=== PATIENT | female | born 1955 | race African-American/Black ===

== ENCOUNTER 2017-04-20 11:34 | Emergency (ER) | payer OTHER ==
[~2017-04-20] VITALS: Ht 157.5 cm; Wt 50.0 kg
[~2017-04-20 11:34] MED LIST: CARV12.5 PO; COZA25TA PO; HYDR25TA35 PO; LANSO15 PO; NIFE30TA8 PO
[2017-04-20] MEDS ORDERED: IOHEXOL 350 MG/ML 10 ML VIAL (for RAD DIAG) IVCONTRAST ONE (11:35)
[2017-04-20 11:38] VITALS: BP 188/92; PULSE 86; RESP 16; TEMP 97.9; O2SAT 97
[2017-04-20] MEDS ORDERED: SODIUM CHLOR 0.9% 1000 ML INJ 1,000 ML IV SCH (11:43)
[2017-04-20] MEDS ORDERED: ONDANSETRON HCL 4 MG/2 ML VIAL IVP ONE (11:45)
[2017-04-20] MEDS ORDERED: MORPHINE SULFATE 2 MG/ML INJ IV PUSH ONE (12:00)
--- NOTE | 2017-04-20 12:10 | PD ---
HPI Chief Complaint: GI Complaint Time Seen by Provider: 11:43 Travel History International Travel<30 days: No Contact w/Intl Traveler<30days: No Traveled to known affect area: No History of Present Illness HPI 61-year-old female that presents to the ED for evaluation of nausea and vomiting as well as epigastric abdominal pain with diarrhea. Patient has a history of lower leg cramps that she's had for a couple of weeks to have been worsening since having the nausea vomiting diarrhea. Per patient she has follow with her doctor who told her that she may have arthritis and order some x -rays that she has not gotten yet here per patient she wants this to be checked as well. Per patient since yesterday at night she developed the nausea vomiting and diarrhea. Per patient no blood from either and but she does have green bile when she throws up. She denies any surgeries to her abdomen. She has an allergy to codeine. She has been taking [id number] remedies with minimal relief. Diarrhea is liquidy. The patient last night she had low difficulty sleeping secondary to nausea and vomiting as well as the cramping. She states that her pain currently is 4 out of 10. Most the patient is in the epigastric area. Denies hitting anything new that could've caused this. No sick contacts. No cough or nose. No fevers chills or sweats. Per patient the pain on the legs is 6 out of 10 and is cramping in nature. Comes and goes. She 's never had this before other than 3 weeks ago. PFSH Past Medical History Anxiety: Yes Depression: Yes Cystic Fibrosis: Yes Diminished Hearing: No Hypertension: Yes Psychiatric: Yes : 2 Para: 2 Dilation and Curettage (D&C): Yes Tubal Ligation: Yes Past Surgical History Other Surgery: Yes (TUBAL LIGATION, FIBROIDS) Social History Alcohol Use: Yes (OCC) Tobacco Use: Yes (PACK A WEEK) Substance Use: Yes (marijuana) Allergies-Medications (Allergen,Severity, Reaction): Coded Allergies: codeine (Verified Allergy, Unknown, ITCH, SWELLING, 04/20/17) Reported Meds & Prescriptions Reported Meds & Active Scripts Active Hydrocodone-Acetamin 5-325 mg (Hydrocodone/Acetaminophen) 5 Mg-325 Mg Tablet 1 Tab PO Q6HR PRN Ranitidine (Ranitidine HCl) 150 Mg Tab 150 Mg PO BID Zofran Odt (Ondansetron Odt) 4 Mg Tab 4 Mg SL Q6HR PRN Nifedipine ER 24 HR (Nifedipine) 30 Mg Tab 30 Mg PO DAILY Coreg (Carvedilol) 12.5 Mg Tab 25 Mg PO Q12HR Reported Hydralazine HCl 25 Mg Tablet 25 Mg PO TID Diclofenac Potassium 50 Mg Tab 50 Mg PO TID Review of Systems Except as stated in HPI: all other systems reviewed are Neg Physical Exam Narrative GENERAL: SKIN: Warm and dry. Slightly anorexic. HEAD: Atraumatic. Normocephalic. EYES: Pupils equal and round. No scleral icterus. No injection or drainage. ENT: No nasal bleeding or discharge. Mucous membranes pink and moist. Tongue is midline. No uvula deviation. NECK: Trachea midline. No JVD. CARDIOVASCULAR: Regular rate and rhythm. No murmurs, S3, S4. RESPIRATORY: No accessory muscle use. Clear to auscultation. Breath sounds equal bilaterally. GASTROINTESTINAL: Abdomen soft, tender to palpation in the epigastric area, nondistended. Hepatic and splenic margins not palpable. MUSCULOSKELETAL: Extremities without clubbing, cyanosis, or edema. No obvious deformities. Full range of motion of the upper and lower extremities bilaterally. 2+ pulses bilaterally. NEUROLOGICAL: Awake and alert. No obvious cranial nerve deficits. Motor grossly within normal limits. Five out of 5 muscle strength in the arms and legs. Normal speech. PSYCHIATRIC: Appropriate mood and affect; insight and judgment normal. Data Data Last Documented VS Vital Signs Date Time Temp Pulse Resp B/P (MAP) Pulse Ox O2 Delivery O2 Flow Rate FiO2 04/20/17 14:30 97.9 76 16 168/88 (114) 98 Room Air Orders Orders Complete Blood Count With Diff (04/20/17 11:43) Comprehensive Metabolic Panel (04/20/17 11:43) Lipase (04/20/17 11:43) Lactic Acid (04/20/17 11:43) Urinalysis - C+S If Indicated (04/20/17 11:43) Ct Abd/Pel W Iv Contrast(Rout) (04/20/17 11:43) Iv Access Insert/Monitor (04/20/17 11:43) Ondansetron Inj (Zofran Inj) (04/20/17 11:45) Sodium Chlor 0.9% 1000 Ml Inj (Ns 1000 M (04/20/17 11:43) Us Leg Venous Doppler Bilat (04/20/17 ) Morphine Inj (Morphine Inj) (04/20/17 12:00) Influenzae A/B Antigen (04/20/17 12:34) Iohexol 350 Inj (Omnipaque 350 Inj) (04/20/17 11:35) Labs Laboratory Tests Test 04/20/17 11:58 04/20/17 12:00 04/20/17 12:10 White Blood Count 11.4 TH/MM3 Red Blood Count 4.94 MIL/MM3 Hemoglobin 12.7 GM/DL Hematocrit 37.7 % Mean Corpuscular Volume 76.3 FL Mean Corpuscular Hemoglobin 25.6 PG Mean Corpuscular Hemoglobin Concent 33.6 % Red Cell Distribution Width 18.4 % Platelet Count 266 TH/MM3 Mean Platelet Volume 7.7 FL Neutrophils (%) (Auto) 84.2 % Lymphocytes (%) (Auto) 12.5 % Monocytes (%) (Auto) 2.8 % Eosinophils (%) (Auto) 0.0 % Basophils (%) (Auto) 0.5 % Neutrophils # (Auto) 9.6 TH/MM3 Lymphocytes # (Auto) 1.4 TH/MM3 Monocytes # (Auto) 0.3 TH/MM3 Eosinophils # (Auto) 0.0 TH/MM3 Basophils # (Auto) 0.1 TH/MM3 CBC Comment DIFF FINAL Differential Comment Blood Urea Nitrogen 20 MG/DL Creatinine 0.97 MG/DL Random Glucose 133 MG/DL Total Protein 8.7 GM/DL Albumin 4.7 GM/DL Calcium Level 10.5 MG/DL Alkaline Phosphatase 55 U/L Aspartate Amino Transf (AST/SGOT) 18 U/L Alanine Aminotransferase (ALT/SGPT) 24 U/L Total Bilirubin 0.6 MG/DL Sodium Level 140 MEQ/L Potassium Level 3.9 MEQ/L Chloride Level 103 MEQ/L Carbon Dioxide Level 28.1 MEQ/L Anion Gap 9 MEQ/L Estimat Glomerular Filtration Rate 70 ML/MIN Lipase 71 U/L Urine Color YELLOW Urine Turbidity HAZY Urine pH 5.5 Urine Specific [place] 1.014 Urine Protein 30 mg/dL Urine Glucose (UA) NEG mg/dL Urine Ketones 40 mg/dL Urine Occult Blood SMALL Urine Nitrite NEG Urine Bilirubin NEG Urine Urobilinogen LESS THAN 2.0 MG/DL Urine Leukocyte Esterase NEG Urine RBC 1 /hpf Urine WBC 2 /hpf Urine Squamous Epithelial Cells 5 /hpf Urine Bacteria OCC /hpf Urine Mucus FEW /lpf Microscopic Urinalysis Comment CULT NOT INDICATED Lactic Acid Level 1.5 mmol/L MDM Medical Decision Making Medical Screen Exam Complete: Yes Emergency Medical Condition: Yes Medical Record Reviewed: Yes Interpretation(s) CBC & BMP Diagram 04/20/17 11:58 Total Protein 8.7 H, Albumin 4.7, Calcium Level 10.5 H, Alkaline Phosphatase 55 , Aspartate Amino Transf (AST/SGOT) 18, Alanine Aminotransferase (ALT/SGPT) 24, Total Bilirubin 0.6 Last Impressions Abdomen/Pelvis CT 04/20/17 1143 Signed Impressions: Service Date/Time: Saturday, April 20, 2017 13:36 - CONCLUSION: 1. No acute findings in the abdomen and pelvis. 2. Prominent thoracolumbar scoliosis. 3. Diffuse atherosclerotic disease. 4. Colonic diverticulosis. Valentin Salgado MD UA negative US negative for DVT Differential Diagnosis Chest pain versus constipation versus PE versus pleurisy versus diverticulitis versus obstruction versus pancreatitis versus kidney stone Narrative Course 61-year-old female that presents to the ED for evaluation of abdominal pain nausea vomiting diarrhea as well as leg pain. Labs and imaging were ordered. Patient agrees with plan. Labs and imaging showed no sign of acute disease. Patient was reassured. At this time this appears to be gastroenteritis and lower leg like cramps. Do recommend that she follows up with her doctor. She will be given a short prescription for Lortab, Zofran, Zantac to help with her symptoms. Told to see ED worsening symptoms. Follow up with PCP. Diagnosis Primary Impression: Gastroenteritis Additional Impression: Bilateral leg cramps Patient Instructions: General Instructions, Narcotic given in the ED Additional Instructions: Take medications as prescribed. Follow-up with PCP. See ED for any worsening symptoms. Do not drink or drive while taking pain medication. Apply ice or heat as needed for pain Med/Other Pt SpecificInfo: Prescription(s) given Scripts Hydrocodone/Acetaminophen (Hydrocodone-Acetamin 5-325 mg) 5 Mg-325 Mg Tablet 1 TAB PO Q6HR Y for PAIN SCALE 1 TO 10, #10 Prov: Renan Dominique MD 04/20/17 Ranitidine (Ranitidine) 150 Mg Tab 150 MG PO BID for Heartburn Management, #20 TAB 0 Refills Prov: Renan Dominique MD 04/20/17 Ondansetron Odt (Zofran Odt) 4 Mg Tab 4 MG SL Q6HR Y for Nausea/Vomiting, #20 TAB 0 Refills Prov: Renan Dominique MD 04/20/17 Disposition: 01 DISCHARGE HOME Condition: Stable Rohith Cramer Apr 20, 2017 12:10
[2017-04-20] MEDS ORDERED: DICL50TA PO (12:11)
[2017-04-20] MEDS ORDERED: HYDR-3799 PO (12:11)
[2017-04-20] MEDS ORDERED: DICL50TA3 PO (12:11)
[2017-04-20 12:38] LABS: AUTOMATED NEUTROPHIL # 9.6 TH/MM3 (1.8-7.7); BASOPHIL # 0.1 TH/MM3 (0-0.2); BASOPHIL % 0.5 % (0.0-2.0); HEMATOCRIT 37.7 % (35.0-46.0); HEMOGLOBIN 12.7 GM/DL (11.6-15.3); LYMPH % 12.5 % (9.0-44.0); LYMPHOCYTE # 1.4 TH/MM3 (1.0-4.8); MEAN CELL VOLUME 76.3 FL (80.0-100.0); MEAN CORPUSCULAR HEMOGLOBIN 25.6 PG (27.0-34.0); MEAN CORPUSCULAR HGB CONC 33.6 % (32.0-36.0); MEAN PLATELET VOLUME 7.7 FL (7.0-11.0); MONO % 2.8 % (0.0-8.0); MONOCYTE # 0.3 TH/MM3 (0-0.9); NEUT % 84.2 % (16.0-70.0); PLATELET COUNT 266 TH/MM3 (150-450); RED BLOOD COUNT 4.94 MIL/MM3 (4.00-5.30); RED CELL DISTRIBUTION WIDTH 18.4 % (11.6-17.2); WHITE BLOOD COUNT 11.4 TH/MM3 (4.0-11.0)
[2017-04-20 12:49] LABS: BACTERIA, URINE OCC /hpf; BILIRUBIN, URINE NEG (NEG); BLOOD, URINE SMALL (NEG); GLUCOSE,URINE NEG (NEG); KETONE, URINE 40 mg/dL (NEG); MUCUS URINE FEW /lpf (OCC); NITRITE,URINE NEG (NEG); PH, URINE 5.5 (5.0-8.5); SQUAMOUS EPITHELIAL CELL URINE 5 /hpf (0-5); URINE COLOR YELLOW (YELLW/STRAW); URINE LEUKOCYTE ESTERASE NEG (NEG)
[2017-04-20 12:50] LABS: ALBUMIN 4.7 GM/DL (3.4-5.0); AST (GOT) 18 U/L (15-37); BICARBONATE 28.1 MEQ/L (21.0-32.0); BLOOD UREA NITROGEN 20 MG/DL (7-18); CALCIUM 10.5 MG/DL (8.5-10.1); CHLORIDE 103 MEQ/L (98-107); CREATININE 0.97 MG/DL (0.50-1.00); GLOMERULAR FILTRATION RATE 70 ML/MIN (>89); GLUCOSE,RANDOM 133 MG/DL (74-106); LIPASE 71 U/L (73-393); SODIUM (NA) 140 MEQ/L (136-145)
[2017-04-20 12:53] LABS: ALKALINE PHOSPHATASE 55 U/L (45-117); ALT (GPT) 24 U/L (10-53); TOTAL BILIRUBIN ADULT 0.6 MG/DL (0.2-1.0); TOTAL PROTEIN 8.7 GM/DL (6.4-8.2)
[2017-04-20 13:01] VITALS: BP 182/91; PULSE 74; RESP 16; TEMP 97.9; O2SAT 99
--- NOTE | 2017-04-20 14:08 | RADRPT ---
EXAM DATE/TIME: 04/20/2017 13:36 [facility] COMPARISON: CT ABDOMEN & PELVIS W CONTRAST, March 17, 2016, 15:11. INDICATIONS : Vomiting and diarrhea. IV CONTRAST: 90 cc Omnipaque 350 (iohexol) IV ORAL CONTRAST: No oral contrast ingested. RADIATION DOSE: 4.77 CTDIvol (mGy) MEDICAL HISTORY : Hypertension. Cystic fibrosis. SURGICAL HISTORY : Tubal ligation. ENCOUNTER: Initial ACUITY: 1 day PAIN SCALE: 3/10 LOCATION: Bilateral upper quadrant TECHNIQUE: Volumetric scanning of the abdomen and pelvis was performed. Using automated exposure control and ad justment of the mA and/or kV according to patient size, radiation dose was kept as low as reasonably achievable to obtain optimal diagnostic quality images. DICOM format image data is available electro nically for review and comparison. FINDINGS: LOWER LUNGS: The visualized lower lungs are clear. LIVER: Homogeneous density without lesion. There is no dilation of the biliary tree. No calcified gallston es. SPLEEN: Normal size without lesion. PANCREAS: Within normal limits. KIDNEYS: Renal arterial calcifications. No evidence of hydronephrosis. No evidence of mass. ADRENAL GLANDS: Within normal limits. VASCULAR: Diffuse atherosclerotic disease. Aortic diameter within normal limits. BOWEL/MESENTERY: Scattered colonic diverticula. No evidence of acute diverticulitis. No evidence of bowel dilatation. No free air or free fluid. Appendix is within normal limits. ABDOMINAL WALL: Within normal limits. RETROPERITONEUM: There is no lymphadenopathy. BLADDER: No wall thickening or mass. REPRODUCTIVE: Within normal limits. INGUINAL: There is no lymphadenopathy or hernia. MUSCULOSKELETAL: Prominent thoracolumbar scoliosis and degenerative findings. CONCLUSION: 1. No acute findings in the abdomen and pelvis. 2. Prominent thoracolumbar scoliosis. 3. Diffuse atherosclerotic disease. 4. Colonic diverticulosis. Valentin Salgado MD on April 20, 2017 at 14:01 Board Certified Radiologist. This report was verified electronically.
[2017-04-20] MEDS ORDERED: HYDR-3516 PO ×2 (14:28→14:44)
[2017-04-20] MEDS ORDERED: RANI150T PO (14:28)
[2017-04-20] MEDS ORDERED: ZOFR4TAB3 SL (14:28)
[2017-04-20 14:30] VITALS: BP 168/88; PULSE 76; RESP 16; TEMP 97.9; O2SAT 98
--- NOTE | 2017-04-20 16:07 | RADRPT ---
EXAM DATE/TIME: 04/20/2017 15:01 [facility] COMPARISON: No previous studies available for comparison. INDICATIONS : Bilateral leg pain. MEDICAL HISTORY : Hypertension. Cystic fibrosis. . Depression. Anxiety. SURGICAL HISTORY : Tubal ligation. Dilation and curettage. ENCOUNTER: Initial ACUITY: 1 day PAIN SCORE: 5/10 LOCATION: Bilateral legs. TECHNIQUE: Venous ultrasound of the left and right leg was performed from the inguinal ligament to the proximal calf. Real-time, color Doppler and spectral tracing, compression and augmentation techniques were us ed. FINDINGS: RIGHT LEG: There is normal compressibility of the deep venous system from the inguinal region to the proximal ca lf. No echogenic clot is seen in the lumen of the common femoral, femoral, popliteal, and posterior tibial veins. There is a normal response of the venous system to proximal and distal augmentation an d respiration. LEFT LEG: There is normal compressibility of the deep venous system from the inguinal region to the proximal ca lf. No echogenic clot is seen in the lumen of the common femoral, femoral, popliteal, and posterior tibial veins. There is a normal response of the venous system to proximal and distal augmentation an d respiration. CONCLUSION: No evidence of lower extremity DVT on the right or left. Valentin Salgado MD on April 20, 2017 at 16:02 Board Certified Radiologist. This report was verified electronically.
[2017-04-20 16:25] VITALS: BP 130/77; TEMP 97.8
[2017-04-20] MEDS ORDERED: ACETAMINOPHEN/HYDROcodone 325 MG/5 MG TAB PO ONE (16:30)
== END 2017-04-20 16:30 | disposition home or self-care (01) ==
LOC: NEPE 11:34
DX: K52.9 Noninfective gastroenteritis and colitis, unspecified (principal); M79.605 Pain in left leg; M79.604 Pain in right leg; K57.30 Diverticulosis of large intestine without perforation or abscess without bleeding; I10 Essential (primary) hypertension; F17.200 Nicotine dependence, unspecified, uncomplicated; F12.90 Cannabis use, unspecified, uncomplicated
CPT/HCPCS: 74177; 80053; 81001; 83605; 83690; 85025; 87804; 93970; 96361; 96374; 96375; 99285; J2270; J2405; J7030; Q9967